=== PATIENT | male | born 1935 | race Asian ===

== ENCOUNTER 2017-01-07 10:36 | Outpatient (CLI) | payer OTHER ==
[~2017-01-07 10:36] MED LIST: ALLO100T22 PO; AMLO10TA PO; CYCL10TA35 PO; DORZSOL OP; ECOTRIN REGULA325 MG PO; FERROUS FUMARA325 MG PO; GABA300C2 PO; GLIP10TA55 PO; GLIP5TAB65 PO; GRALISE600 MG PO; HYDR25TA60 PO; HYDRALAZINE25 MG PO; LISI20TA11 PO; LOSA50TA PO; METF850T PO; PIOG30TA PO; SIMV10TA PO; TRAM50TA PO; XALATAN0.005 % OP
== END 2017-01-07 19:20 | disposition home or self-care (01) ==
LOC: RAD 10:36
DX: M54.12 Radiculopathy, cervical region (principal)

== ENCOUNTER 2017-08-27 12:50 | Outpatient (CLI) | payer OTHER | END 2017-08-27 19:37 | disposition home or self-care (01) | LOC: LABW 12:50 | DX: M10.071 Idiopathic gout, right ankle and foot (principal); M10.072 Idiopathic gout, left ankle and foot | CPT/HCPCS: 36415; 84550; 85651 ==

== ENCOUNTER 2017-09-19 10:50 | Outpatient (CLI) | payer OTHER | END 2017-09-19 18:58 | disposition home or self-care (01) | LOC: MRI 10:50 | DX: M54.12 Radiculopathy, cervical region (principal) ==

== ENCOUNTER 2017-10-20 10:02 | Outpatient (CLI) | payer OTHER | END 2017-10-20 19:40 | disposition home or self-care (01) | LOC: LABW 10:02 | DX: M10.071 Idiopathic gout, right ankle and foot (principal); M10.072 Idiopathic gout, left ankle and foot | CPT/HCPCS: 36415; 84550; 85651 ==

== ENCOUNTER 2017-12-05 11:12 | Outpatient (CLI) | payer OTHER | END 2017-12-05 21:24 | disposition home or self-care (01) | LOC: US 11:12 | DX: E11.22 Type 2 diabetes mellitus with diabetic chronic kidney disease (principal); E11.40 Type 2 diabetes mellitus with diabetic neuropathy, unspecified; N13.8 Other obstructive and reflux uropathy; N40.1 Benign prostatic hyperplasia with lower urinary tract symptoms; E78.4 Other hyperlipidemia; R53.83 Other fatigue; R60.0 Localized edema; M54.5 Low back pain ==

== ENCOUNTER 2018-01-26 12:23 | Outpatient (CLI) | payer OTHER | END 2018-01-26 20:47 | disposition home or self-care (01) | LOC: RAD 12:23 | DX: M25.561 Pain in right knee (principal); M25.562 Pain in left knee ==

== ENCOUNTER 2018-03-27 12:24 | Outpatient (CLI) | payer OTHER | END 2018-03-27 19:12 | disposition home or self-care (01) | LOC: US 12:24 | DX: E04.1 Nontoxic single thyroid nodule (principal) ==

== ENCOUNTER 2018-07-29 15:40 | Outpatient (CLI) | payer OTHER ==
[2018-07-29 16:54] LABS: POTASSIUM 4.7 mmol/L (3.6-5.2)
== END 2018-07-29 21:23 | disposition home or self-care (01) ==
LOC: LABW 15:40
PROVIDERS: Internal Medicine Nephrology
DX: N18.3 Chronic kidney disease, stage 3 (moderate) (principal); I12.9 Hypertensive chronic kidney disease with stage 1 through stage 4 chronic kidney disease, or unspecified chronic kidney disease; N40.1 Benign prostatic hyperplasia with lower urinary tract symptoms; E11.22 Type 2 diabetes mellitus with diabetic chronic kidney disease; D63.1 Anemia in chronic kidney disease; N25.81 Secondary hyperparathyroidism of renal origin; I63.9 Cerebral infarction, unspecified; M19.90 Unspecified osteoarthritis, unspecified site; M10.9 Gout, unspecified; J44.9 Chronic obstructive pulmonary disease, unspecified; E78.5 Hyperlipidemia, unspecified; G47.33 Obstructive sleep apnea (adult) (pediatric); R80.9 Proteinuria, unspecified
CPT/HCPCS: 36415; 80048; 82306; 82728; 83540; 83550; 83970; 84100; 85018

== ENCOUNTER 2018-08-24 12:59 | Outpatient (CLI) | payer OTHER ==
[~2018-08-24] VITALS: Ht 188 cm; Wt 120.7 kg
== END 2018-08-24 22:32 | disposition home or self-care (01) ==
LOC: INF 12:59
DX: D50.9 Iron deficiency anemia, unspecified (principal)
CPT/HCPCS: 96365; J1439

== ENCOUNTER 2018-09-02 12:33 | Outpatient (CLI) | payer OTHER ==
[~2018-09-02] VITALS: Ht 190.5 cm; Wt 120.7 kg
== END 2018-09-02 21:16 | disposition home or self-care (01) ==
LOC: INF 12:33
DX: D50.9 Iron deficiency anemia, unspecified (principal)
CPT/HCPCS: 96365; J1439

== ENCOUNTER 2019-04-23 15:07 | Outpatient (CLI) | payer OTHER | END 2019-04-23 19:13 | disposition home or self-care (01) | LOC: LAB 15:07 | DX: R60.0 Localized edema (principal) | CPT/HCPCS: 83880 ==

== ENCOUNTER 2019-05-05 09:53 | Inpatient (IN) | payer OTHER ==
[~2019-05-05] VITALS: Ht 188 cm; Wt 119.3 kg
[2019-05-05 09:53] VITALS: BP 162/53; TEMP 100.2
[2019-05-05 10:40] LABS: PLATELET COUNT 182 K/uL (142-355)
[2019-05-05 10:48] LABS: POTASSIUM 4.8 mmol/L (3.6-5.2)
[2019-05-05 11:02] LABS: PARTIAL THROMBOPLASTIN TIME 27.6 SECONDS (24.5-33.6)
[2019-05-05 11:45] VITALS: BP 154/62
[2019-05-05 11:57] VITALS: TEMP 98.8
[2019-05-05 13:39] VITALS: BP 167/52; TEMP 97.3; Ht 188 cm; Wt 119.3 kg
[2019-05-05] MEDS ORDERED: ASPIR-8181 MG PO (14:30)
[2019-05-05] MEDS ORDERED: AMLO2.5T PO (14:30)
[2019-05-05] MEDS ORDERED: ATEN50TA36 PO (14:31)
[2019-05-05] MEDS ORDERED: CINNAMON500 MG PO (14:32)
[2019-05-05] MEDS ORDERED: CLONIDINE0.2 MG/24 TD (14:33)
[2019-05-05] MEDS ORDERED: DOXAZOSIN4 M1 PO (14:34)
[2019-05-05] MEDS ORDERED: TAMS0.4C PO (14:35)
[2019-05-05] MEDS ORDERED: FURO40TA93 PO (14:36)
[2019-05-05] MEDS ORDERED: NEURONTIN 100M100 MG PO (14:36)
[2019-05-05] MEDS ORDERED: GLUCERN1 PO (14:39)
[2019-05-05] MEDS ORDERED: GLYBURIDE2.5 M1 PO (14:40)
[2019-05-05] MEDS ORDERED: INSUINJP SC (14:40)
[2019-05-05] MEDS ORDERED: COZAAR100 MG PO (14:41)
[2019-05-05] MEDS ORDERED: CLOP75TA2 PO (14:42)
[2019-05-05] MEDS ORDERED: SIMV20TA2 PO (14:43)
[2019-05-05] MEDS ORDERED: LYRICA 100 MG100 MG PO (14:43)
[2019-05-05] MEDS ORDERED: VIT B12/FA PO (14:44)
[2019-05-05 16:00] VITALS: BP 179/67; TEMP 97.4
[2019-05-05 19:55] VITALS: BP 193/67; TEMP 98.2
[2019-05-06] VITALS: BP 190/60; TEMP 97.3
[2019-05-06 04:02] VITALS: BP 154/59; TEMP 98
[2019-05-06 08:00] VITALS: BP 141/62; TEMP 97.4
[2019-05-06 12:00] VITALS: BP 147/53; TEMP 97.5
[2019-05-06 16:00] VITALS: BP 172/68; TEMP 97.7
[2019-05-06 18:52] LABS: PLATELET COUNT 171 K/uL (142-355)
[2019-05-06 19:00] LABS: POTASSIUM 4.9 mmol/L (3.6-5.2)
[2019-05-06 20:00] VITALS: BP 169/52; TEMP 97.4
[2019-05-07] VITALS: BP 174/60; TEMP 98.5
[2019-05-07 04:00] VITALS: BP 164/51; TEMP 98.5
[2019-05-07 05:05] LABS: PLATELET COUNT 158 K/uL (142-355)
[2019-05-07 05:27] LABS: POTASSIUM 4.5 mmol/L (3.6-5.2)
[2019-05-07 08:00] VITALS: BP 104/62; TEMP 97.7
[2019-05-07 20:00] VITALS: BP 193/67; TEMP 98.2
[2019-05-07 23:59] VITALS: BP 130/67; TEMP 98.3
[2019-05-08 03:57] VITALS: BP 173/53; TEMP 97.9
[2019-05-08 04:52] LABS: PLATELET COUNT 188 K/uL (142-355)
[2019-05-08 05:07] LABS: POTASSIUM 4.6 mmol/L (3.6-5.2)
[2019-05-08 08:00] VITALS: BP 186/60; TEMP 98.1
[2019-05-08 12:00] VITALS: BP 188/63; TEMP 97.4
[2019-05-08 16:00] VITALS: BP 181/73; TEMP 97.6
[2019-05-08 20:00] VITALS: BP 182/63; TEMP 97.5
[2019-05-09] VITALS (7 sets, daily range): BP systolic 104–195; BP diastolic 47–69; TEMP 97.4–98.3
[2019-05-10 04:00] VITALS: BP 143/65; TEMP 97.7
[2019-05-10 08:00] VITALS: BP 108/69; TEMP 97.6
== END 2019-05-10 10:20 | disposition swing bed (61) | DRG 291 ==
LOC: ED 09:53 → MED/SURG 12:45
PROVIDERS: Family Medicine; ADMIT Hospitalist
DX: I13.0 Hypertensive heart and chronic kidney disease with heart failure and stage 1 through stage 4 chronic kidney disease, or unspecified chronic kidney disease (principal); I50.43 Acute on chronic combined systolic (congestive) and diastolic (congestive) heart failure; N39.0 Urinary tract infection, site not specified; N17.8 Other acute kidney failure; N18.4 Chronic kidney disease, stage 4 (severe); M62.81 Muscle weakness (generalized); E11.22 Type 2 diabetes mellitus with diabetic chronic kidney disease; R62.7 Adult failure to thrive
CPT/HCPCS: 36415; 80053; 81000; 82550; 83605; 83735; 83880; 84484; 85027; 85379; 85610; 85730; 87040; 87077; 87086; 87088; 87186; 93005; 94760; 96365; 96366; 96375; 99284; J1956; J0456; J1650; J1815; J1940

== ENCOUNTER 2019-05-10 10:21 | Inpatient (IN) | payer OTHER ==
[~2019-05-10] VITALS: Ht 188 cm; Wt 123.0 kg
[~2019-05-10 10:21] MED LIST changes: +AMLO2.5T PO; +ASPIR-8181 MG PO; +ATEN50TA36 PO; +CINNAMON500 MG PO; +CLONIDINE0.2 MG/24 TD; +CLOP75TA2 PO; +COZAAR100 MG PO; +DOXAZOSIN4 M1 PO; +FURO40TA93 PO; +GLUCERN1 PO; +GLYBURIDE2.5 M1 PO; +INSUINJP SC; +LYRICA 100 MG100 MG PO; +NEURONTIN 100M100 MG PO; +SIMV20TA2 PO; +TAMS0.4C PO; +VIT B12/FA PO
--- NOTE | 2019-05-10 11:38 | NUR ---
DR PETTY MCCLUREFIED OF PT U/A SENSITIVITY RESULTS SERRATIA MARCESCENS. BACTERIA SENSITIVE TO LEVOQUIN. NO NEW ORDERS REC'D
[2019-05-10 12:00] VITALS: BP 171/69; TEMP 97.6
[2019-05-10 21:05] VITALS: BP 154/61; TEMP 97.4
--- NOTE | 2019-05-11 02:53 | NUR ---
05/10/2019 @ 22:00 [place] DIXON LPN NOTIFIED OF NEED FOR TRANSPORT ON 05/11 TO [facility] [place] STATED SHE WILL ARRANGE IN AM.
[2019-05-11 08:00] VITALS: BP 142/63; TEMP 97.8
--- NOTE | 2019-05-11 09:13 | NUR ---
Admitted with muscle weakness, CHF, UTI, and HTN and takes insulin and on an 1800 calorie ada diet plan. 6'2" and IBW= 190+/-10% and kcal 2600, protein 86-130 grams and fluids as tolerated d/t dx. of CHF and need to increase fluids as tolerated by MD. Recommend: 1- INcrease fluids as tolerated d/t UTI per MD only 2- Dx. CHF add Cardiac to diet plan 3- Add high fiber to diet plan.
--- NOTE | 2019-05-11 15:37 | NUR ---
PRACTICAL MATTER STATEMENT IS AN 83 Y/O MALE ADMITTED TO FACILITY ON 05/10/19 FOR SHORT TERM REHAB. REQUIRES 24-HOUR SENIOR LIVING CARE,WHICH IS A PRACTICAL MATTER AND CAN ONLY BE DONE ON AN INPATIENT BASIS. LIVES AT HOME WITH HIS ELDERLY . SHE NOR THE CHILDREN ARE ABLE TO PROVIDE THIS TYPE OF CARE FOR AT THIS TIME. REGISTERED PHLEBOTOMIST PART TIME WILL CONTINUE TO MONITOR AND ASSIST WITH ANY MEDICAL RELATED PSYCHOSOCIAL NEEDS PRN.
[2019-05-12 20:00] VITALS: BP 156/55; TEMP 98
[2019-05-13 08:00] VITALS: BP 164/59; TEMP 98.7
[2019-05-13 20:00] VITALS: BP 176/68; TEMP 97.4
[2019-05-14 08:17] VITALS: BP 153/60; TEMP 97.4
[2019-05-14 20:00] VITALS: BP 220/77; TEMP 97.3
--- NOTE | 2019-05-14 22:19 | NUR ---
PT SITTING UP IN CHAIR WAATCHING TV. AT BE. PT TAKEN DIABETIC SNACKS. PT HAS NO COMPLAINTS AT THIS TIME. CALL LIGHT IN REACH. WILL CONTINUE TO MONITER PT
[2019-05-15 20:06] VITALS: BP 146/62; TEMP 97.3
--- NOTE | 2019-05-15 21:30 | NUR ---
PT AWAKE AND TALKATIVE WITH ELECTRONICS TEACHER SITTING UP IN RECLINER WATCHING TV, NO S/S OF PAIN OR DISTRESS NOTED, RESP RATE NONLABORED, ON ROOM AIR, EUNICE BOOT INTACT TO R LOWER LEG, DENIES ANY PAIN OR PROBLEMS AT THIS TIME. GAVE NIGHTLY MEDICATIONS PO MEDICATIONS GIVEN WHOLE WITH NO PROBLEMS. FSBS WAS 71 AROUND START OF SHIFT, PT GIVEN SNACK BUT STATES HE USUALLY ONLY GETS 10 UNITS OF INSULIN AT NIGHT AT HOME. ELECTRONICS TEACHER HELD NIGHT DOSE OF 40 UNITS OF LEVEMIR, WILL MONITOR CLOSELY, ENCOURAGED TO CALL NEEDED.
[2019-05-16 08:48] VITALS: BP 163/66; TEMP 97.8
[2019-05-16 20:00] VITALS: BP 184/63; TEMP 97.6
--- NOTE | 2019-05-16 21:34 | NUR ---
PT AWAKE SITTING UP IN RECLINER WATCHING TV WITH NO S/S OF PAIN OR DISTRESS NOTED, PT DENIES ANY PAIN OR NEEDS, RESP RATE NONLABORED, EUNICE BOOT INTACT TO R LOWER LEG, ALERT AND ORIENTED X4, TALKATIVE WITH RUBBER COMPOUNDER FORMULATOR, BROUGHT PT NIGHTLY DIABETIC SNACK. GAVE NIGHTLY MEDICATIONS WHOLE WITH NO PROBLEMS NOTED. WILL MONITOR CLOSELY, ENCOURAGED TO CALL NEEDED, URINAL WITHIN PT'S REACH.
[2019-05-17 08:00] VITALS: BP 161/60; TEMP 97.9
[2019-05-17 20:00] VITALS: BP 166/54; TEMP 98
[2019-05-18 19:55] VITALS: BP 157/52; TEMP 97.8
--- NOTE | 2019-05-19 02:01 | NUR ---
05/18/192149 EUNICE BOOT DSY CHANGED TO RT LEG ,CLEANED WITH NS APPLIED HYDROGEL WRAPPED WITH EUNICE BOOT THEN WRAPPED WITH KERLUX AND WRAPPED WITH ERICH BANDAGE. SKIN GOOD TO RT LEG NO OPEN AREAS TO LEG. SMALL AMOUNT SWELLING TO RT ANKLE NOTED.C
[2019-05-19 08:00] VITALS: BP 136/50; TEMP 97.7
[2019-05-19 19:56] VITALS: BP 168/56; TEMP 97.4
--- NOTE | 2019-05-19 20:43 | NUR ---
Patient is up sitting in chair. Stated "that he had a good day so far", and no compliants of pain or discomfort. No acute distress noted. Call light is within reach. Will continue to monitor.
[2019-05-20 01:07] VITALS: BP 131/89; TEMP 98.5; BMI 32.2
[2019-05-20 08:00] VITALS: BP 142/64; TEMP 97.6
--- NOTE | 2019-05-20 13:20 | NUR ---
DR DOVE CALLED STATING PT IS CONCERNED ABOUT GLUCOSE LEVELS. GLUCOSE TRENDS GIVEN TO DR DOVE. ORDERS REC'D TO [place] LEVEMIR TO 40 UNITS SUBQ EVERY MORNING LEVEMIR 30 UNITS SUBQ AT BT. CHANGE GLYBURIDE TO 10 MG QAM.
[2019-05-20 20:00] VITALS: BP 146/65; TEMP 97.5
[2019-05-21 08:00] VITALS: BP 181/66; TEMP 97.5
[2019-05-21 19:52] VITALS: BP 138/54; TEMP 97.4
--- NOTE | 2019-05-21 23:00 | NUR ---
PT SITTING IN CHAIR EATING COOKIES AND WATCHING TV. FAMILY AT SIDE WATCHING TV. PT IN NAD, WITH NO CONCERNS OR COMPLAINTS.
--- NOTE | 2019-05-22 01:49 | NUR ---
PT RESTING WITH EYES CLOSED IN NAD
--- NOTE | 2019-05-22 06:28 | NUR ---
PT LYING IN BED RESTING WITH EYES CLOSED IN NAD. SIDE RAILS UP X 2.
[2019-05-22 08:00] VITALS: BP 161/71; TEMP 97.7
[2019-05-22 19:50] VITALS: BP 169/97; TEMP 97.4
--- NOTE | 2019-05-22 21:00 | NUR ---
PT IN BATHROOM ASK THAT I COME BACK FOR MEDICATION DISTRUBUTION. PT IN NAD.
--- NOTE | 2019-05-22 21:30 | NUR ---
PT IN BATHROOM ASK THIS NURSE TO COME BACK IN A FEW MORE MINUTES. PT IN NAD, THIS NURSE WILL CHECK BACK FOR MEDICATION DISTRIBUTION.
[2019-05-23 20:00] VITALS: BP 181/55; TEMP 97.9
--- NOTE | 2019-05-24 06:09 | NUR ---
ASSISTED PT UP TO BR PER TW0 PERSONS. PT STATED THAT HE JUST COULDNT GET HIS BALANCE THIS MORNING.
--- NOTE | 2019-05-24 06:15 | NUR ---
PT WAS ABLE TO AMBULATE FROM BR TO RECLINER USING ROLLING WALKER. PT SITTING UP IN CHAIR WITH LOWER EXT ELEVATED. AT BEDSIDE.
--- NOTE | 2019-05-24 10:00 | NUR ---
AFTER OBSERVATION OF PATIENT AND IN DEPTH INTERVIEW WITH STAFF, PATIENT REQURIES SUPERVISION WITH SET UP HELP ONLY FOR BED MOBILITY, TRANSFERS, WALKING IN ROOM, DRESSING, TOILET USE, PERSONAL HYGIENE AND BATHING. PATIENT IS TOTALLY DEPENDENT FOR LOCO ON/OFF UNIT DUE TO THERAPY PUSHING PATIENT IN WHEELCHAIR TO/FROM THERAPY DEPT. PT IS ABLE TO FEED HIMSELF INDEPENDENTLY WITH NO HELP FROM STAFF.
[2019-05-24 20:00] VITALS: BP 182/59; TEMP 97.6
[2019-05-25 08:00] VITALS: BP 169/57; TEMP 97.4
[2019-05-25 20:00] VITALS: BP 151/55; TEMP 97.4
[2019-05-26 20:00] VITALS: BP 137/60; TEMP 97.5
--- NOTE | 2019-05-27 00:21 | NUR ---
Unaboot to right lower extremity was changed, cleaned with normal saline, and reapplied. No open areas noted to right lower extremity or foot. Patient tolerated with no acute distress noted. Call light is within reach. Will continue to monitor.
[2019-05-27 08:00] VITALS: BP 131/75; TEMP 97.6
--- NOTE | 2019-05-27 10:46 | NUR ---
HOME HEALTH REFERRAL WITH PT, AND OT EVAL HAS BEEN FAXED TO [facility] TODAY.
--- NOTE | 2019-05-27 14:19 | NUR ---
CANCELLED THE HOME HEALTH REFERRAL AND REQUESTED OUTPATIENT THERAPY. PATIENT HAS A FOLLOW UP APPOINTMENT WITH [facility] ON 06/03/19 AT 9:00
[2019-05-27 20:00] VITALS: BP 123/63; TEMP 97.9
[2019-05-28 08:00] VITALS: BP 153/62; TEMP 97.5
== END 2019-05-28 15:30 | disposition home or self-care (01) | DRG 556 ==
LOC: MED/SURG 10:21
PROVIDERS: ADMIT Family Medicine
DX: M62.81 Muscle weakness (generalized) (principal); I50.9 Heart failure, unspecified; I10 Essential (primary) hypertension; E11.9 Type 2 diabetes mellitus without complications; M19.90 Unspecified osteoarthritis, unspecified site
CPT/HCPCS: 87081; J1815

== ENCOUNTER 2019-11-08 11:11 | Outpatient (CLI) | payer OTHER | END 2019-11-08 19:08 | disposition home or self-care (01) | LOC: RAD 11:11 | DX: R06.09 Other forms of dyspnea (principal) ==

== ENCOUNTER 2020-02-25 18:29 | Outpatient (CLI) | payer OTHER | END 2020-02-25 19:25 | disposition home or self-care (01) | LOC: LABW 18:29 | DX: R60.0 Localized edema (principal) | CPT/HCPCS: 83880 ==

== ENCOUNTER 2020-07-31 15:11 | Inpatient (IN) | payer OTHER ==
[~2020-07-31] VITALS: Ht 188 cm; Wt 118.9 kg
[2020-07-31 16:40] VITALS: BP 186/72; TEMP 98; Ht 188 cm; Wt 118.9 kg
[2020-07-31 16:46] LABS: PLATELET COUNT 175 K/uL (142-355)
[2020-07-31 16:57] LABS: POTASSIUM 4.6 mmol/L (3.6-5.2)
[2020-07-31] MEDS ORDERED: METO5TAB38 PO (18:16)
[2020-07-31] MEDS ORDERED: VITAMIN B-121000 MC2 PO (18:17)
[2020-07-31] MEDS ORDERED: COSOPT1 ML OPTH (18:19)
[2020-07-31] MEDS ORDERED: MULTIVITAMIN ME1 TA1 PO (18:20)
[2020-07-31] MEDS ORDERED: INSUINJP SC (18:21)
[2020-07-31 20:00] VITALS: BP 188/77; TEMP 98.2
[2020-07-31 23:43] VITALS: BP 154/55; TEMP 98.7
[2020-08-01] VITALS (8 sets, daily range): BP systolic 164–210; BP diastolic 59–94; TEMP 98.1–99.4
[2020-08-01 05:09] LABS: PLATELET COUNT 175 K/uL (142-355)
[2020-08-01 06:09] LABS: POTASSIUM 4.5 mmol/L (3.6-5.2)
[2020-08-01] MEDS ORDERED: CLONIDINE HYDR0.2 MG PO (10:50)
[2020-08-02 03:56] VITALS: BP 109/64; TEMP 97.8
[2020-08-02 05:29] LABS: PLATELET COUNT 163 K/uL (142-355)
[2020-08-02 05:59] LABS: POTASSIUM 4.9 mmol/L (3.6-5.2)
[2020-08-02 08:00] VITALS: BP 179/61; TEMP 97.5
[2020-08-02 12:00] VITALS: BP 160/60; TEMP 98.8
[2020-08-02 16:00] VITALS: BP 177/69; TEMP 97.3
[2020-08-02 20:00] VITALS: BP 178/76; TEMP 98.2
[2020-08-03] VITALS: BP 162/80; TEMP 98.2
[2020-08-03 04:00] VITALS: BP 176/63; TEMP 97.2
[2020-08-03 08:00] VITALS: BP 184/86; TEMP 98.8
[2020-08-03 08:11] LABS: PLATELET COUNT 185 K/uL (142-355)
[2020-08-03 08:26] LABS: POTASSIUM 4.9 mmol/L (3.6-5.2)
[2020-08-03 12:00] VITALS: BP 181/78; TEMP 98.1
[2020-08-03 16:00] VITALS: BP 150/80; TEMP 98.9
[2020-08-03 20:00] VITALS: BP 152/79; TEMP 98.7
[2020-08-04] VITALS (7 sets, daily range): BP systolic 152–186; BP diastolic 65–86; TEMP 97.6–98.8
[2020-08-04 05:00] LABS: PLATELET COUNT 181 K/uL (142-355)
[2020-08-04 05:52] LABS: POTASSIUM 4.7 mmol/L (3.6-5.2)
[2020-08-05] VITALS (7 sets, daily range): BP systolic 138–185; BP diastolic 60–78; TEMP 97.8–100.2
[2020-08-05 05:37] LABS: PLATELET COUNT 199 K/uL (142-355)
[2020-08-05 08:44] LABS: POTASSIUM 4.5 mmol/L (3.6-5.2)
[2020-08-06] VITALS (11 sets, daily range): BP systolic 29–188; BP diastolic 49–94; TEMP 97.4–98.5
[2020-08-06 06:07] LABS: PLATELET COUNT 190 K/uL (142-355)
[2020-08-06 06:11] LABS: POTASSIUM 4.3 mmol/L (3.6-5.2)
[2020-08-07] VITALS (8 sets, daily range): BP systolic 103–190; BP diastolic 58–82; TEMP 97.9–98.5
[2020-08-07 05:38] LABS: POTASSIUM 4.3 mmol/L (3.6-5.2)
[2020-08-07 05:41] LABS: PLATELET COUNT 230 K/uL (142-355)
[2020-08-08] VITALS (7 sets, daily range): BP systolic 132–182; BP diastolic 61–80; TEMP 97.5–98.3
[2020-08-08 09:10] LABS: PLATELET COUNT 220 K/uL (142-355)
[2020-08-08 09:23] LABS: POTASSIUM 4.1 mmol/L (3.6-5.2)
[2020-08-09] VITALS (7 sets, daily range): BP systolic 126–182; BP diastolic 47–78; TEMP 97.1–98.4
[2020-08-09 07:19] LABS: PLATELET COUNT 239 K/uL (142-355)
[2020-08-10 03:50] VITALS: BP 178/64; TEMP 97.8
[2020-08-10 05:09] LABS: PLATELET COUNT 217 K/uL (142-355)
[2020-08-10 05:41] LABS: POTASSIUM 4.8 mmol/L (3.6-5.2)
[2020-08-10 08:00] VITALS: BP 180/79; TEMP 97.1
[2020-08-10 12:00] VITALS: BP 130/62; TEMP 96
== END 2020-08-10 14:16 | DRG 280 ==
LOC: MED/SURG 15:11
PROVIDERS: ADMIT Family Medicine; ATTEND Family Medicine
DX: I21.4 Non-ST elevation (NSTEMI) myocardial infarction (principal); I50.23 Acute on chronic systolic (congestive) heart failure; I13.0 Hypertensive heart and chronic kidney disease with heart failure and stage 1 through stage 4 chronic kidney disease, or unspecified chronic kidney disease; N18.4 Chronic kidney disease, stage 4 (severe); N17.8 Other acute kidney failure; E46 Unspecified protein-calorie malnutrition; E11.22 Type 2 diabetes mellitus with diabetic chronic kidney disease; E11.65 Type 2 diabetes mellitus with hyperglycemia; M10.9 Gout, unspecified; E66.8 Other obesity; F03.90 Unspecified dementia, unspecified severity, without behavioral disturbance, psychotic disturbance, mood disturbance, and anxiety; E66.01 Morbid (severe) obesity due to excess calories; I20.8 Other forms of angina pectoris; D64.89 Other specified anemias
CPT/HCPCS: 36415; 36600; 80053; 81000; 82550; 82570; 82728; 82805; 82948; 83550; 83735; 83880; 84100; 84155; 84443; 84484; 84520; 85014; 85018; 85027; 85610; 86140; 86850; 86900; 86901; 86922; 87040; 87635; 93005; 94640; 94664; 94760; 96365; 96366; 96367; 96372; 96374; 96375; J0360; J0456; J0696; J1200; J1630; J1650; J1815; J1940; J2060; J2270; J3475; P9016; U0003

== ENCOUNTER 2020-08-10 14:35 | Inpatient (IN) | payer OTHER ==
[~2020-08-10 14:35] MED LIST changes: +CLONIDINE HYDR0.2 MG PO; +COSOPT1 ML OPTH; +METO5TAB38 PO; +MULTIVITAMIN ME1 TA1 PO; +VITAMIN B-121000 MC2 PO
== END 2020-08-15 18:00 | disposition short-term general hospital (02) ==
LOC: PAVC 14:35
PROVIDERS: ADMIT Family Medicine; ATTEND Family Medicine
DX: I21.4 Non-ST elevation (NSTEMI) myocardial infarction (principal); I50.43 Acute on chronic combined systolic (congestive) and diastolic (congestive) heart failure; M62.81 Muscle weakness (generalized); R48.8 Other symbolic dysfunctions; R26.2 Difficulty in walking, not elsewhere classified; R27.9 Unspecified lack of coordination
CPT/HCPCS: 36600; 80053; 82805; 84100; 85027

== ENCOUNTER 2020-08-15 13:15 | Outpatient (CLI) | payer OTHER ==
[2020-08-15 13:46] LABS: PLATELET COUNT 300 K/uL (142-355)
[2020-08-15 14:27] LABS: POTASSIUM 5.2 mmol/L (3.6-5.2)
== END 2020-08-15 22:41 | disposition home or self-care (01) ==
LOC: RAD 13:15 → LAB 13:15 → RAD 22:41
PROVIDERS: ATTEND Family Medicine
DX: N18.4 Chronic kidney disease, stage 4 (severe) (principal); E11.9 Type 2 diabetes mellitus without complications; I50.9 Heart failure, unspecified; R06.02 Shortness of breath
CPT/HCPCS: 36600; 80053; 82805; 84100; 85027